=== PATIENT | male | born 2000 | race Caucasian/White ===

== ENCOUNTER 2024-05-02 18:10 | Emergency (ER) | payer BC, OTHER ==
[2024-05-02] MEDS ORDERED: ONDANSETRON 4 MG (ODT) TAB ONE (18:37)
--- NOTE | 2024-05-02 20:20 | RAD REPORT ---
EXAM: CT brain without contrast HISTORY: TRAUMA COMPARISON: None TECHNIQUE: Multiple contiguous axial images were obtained and a CT of the brain without contrast. Sag ittal and coronal reformats were performed. FINDINGS: No evidence of hydrocephalus, intracranial hemorrhage, or extra-axial fluid collection. The brain is normal in morphology. The calvarium is intact. Left frontal scalp swelling and small hematoma. The visualized paranasal sin uses and mastoid air cells are essentially clear. IMPRESSION: No evidence of acute intracranial abnormality. Left frontal scalp swelling and small hematoma. EXAM: CT of the cervical spine without contrast HISTORY: TRAUMA COMPARISON: None TECHNIQUE: Multiple contiguous axial images were obtained in a CT of the cervical spine without contr ast. Sagittal and coronal reformats were performed. FINDINGS: The vertebral bodies demonstrate normal height and alignment. No evidence of acute fracture or subluxation.. No degenerative changes are present. No prevertebral soft tissue swelling is seen. The posterior facets are well aligned. Normal alignment of the skull base with the cervical spine is seen. Incidentally noted 1.6 cm lipoma along the floor of mouth left of midline. The lung apices are unremarkable. IMPRESSION: No evidence of acute osseous abnormality of the cervical spine.
--- NOTE | 2024-05-02 20:26 | ER ---
Nurse's Notes [facility] Name: Elliot Robbins Age: 23 yrs Sex: Male : 2000 Arrival Date: 05/02/2024 Time: 18:10 Bed 14 Private MD: Diagnosis: closed head injury Presentation: 05/02 18:21 Chief complaint: EMS states: toned out for head injury. [place] [facility] [place] the firetruck when an overhead door came down, hitting patient in the back of the head which then made him fall hitting his forehead on the truck. No LOC. c/o dizziness and nausea. PERLLA. EMS gave acetaminophen 975mg PO. Coronavirus screen: Vaccine status: Patient reports being unvaccinated. Ebola Screen: No symptoms or risks identified at this time. Initial Sepsis Screen: Does the patient meet any 2 criteria? HR > 90 bpm. No. Patient's initial sepsis screen is negative. Does the patient have a suspected source of infection? No. Patient's initial sepsis screen is negative. Risk Assessment: Do you want to hurt yourself or someone else? Patient reports no desire to harm self or others. Onset of symptoms was May 02, 2024 at 17:15. Care prior to arrival: Medication(s) given: Tylenol, 975mg PO. 18:21 Method Of Arrival: EMS: [place] [id number] 18:21 Acuity: ROCHELLE 3 me1 Triage Assessment: 18:24 General: Appears uncomfortable, well developed, well nourished, Behavior is calm, me1 cooperative, appropriate for age. Pain: Complains of pain in head Pain does not radiate. Pain currently is 7 out of 10 on a pain scale. Quality of pain is described as aching, Pain began suddenly, Is continuous. EENT: No signs and/or symptoms were reported regarding the EENT system. Neuro: Level of Consciousness is awake, alert, obeys commands, Oriented to person, place, time, situation, Appropriate for age Reports dizziness, headache. Cardiovascular: Patient's skin is warm and dry. Respiratory: Airway is patent Respiratory effort is even, unlabored, Respiratory pattern is regular, symmetrical. GI: No signs and/or symptoms were reported involving the gastrointestinal system. : No signs and/or symptoms were reported regarding the genitourinary system. Derm: Skin is intact, is healthy with good turgor, Skin is pink, warm \T\ dry. Musculoskeletal: Circulation, motion, and sensation intact. Range of motion:. Injury Description: firetruck door fell and hit him in the back of the head and then he fell forward hitting his forehead. Historical: - Allergies: 18:24 No Known Allergies; me1 - PMHx: 18:24 Hypertensive disorder; me1 - PSHx: 18:24 None; me1 - Immunization history:: Adult Immunizations up to date. - Infectious Disease History:: Denies. - Social history:: Smoking status: Patient/guardian denies using tobacco, but has a distant history of tobacco abuse. - Family history:: not pertinent. Screenin:[facility] ED Fall Risk Assessment (Adult) History of falling in the last 3 months, me1 including since admission No falls in past 3 months (0 pts) Confusion or Disorientation No (0 pts) Intoxicated or Sedated No (0 pts) Impaired Gait No (0 pts) Mobility Assist Device Used No (0 pt) Altered Elimination No (0 pt) Score/Fall Risk Level 0 - 2 = Low Risk Maintained a safe environment, Provided non-skid footwear, Hourly rounding (assess needs \T\ fall precautionary measures) done. Abuse screen: Denies threats or abuse. Nutritional screening: No deficits noted. Tuberculosis screening: No symptoms or risk factors identified. Assessment: 18:21 Reassessment: See triage assessment. me1 20:46 Reassessment: Patient and/or family updated on plan of care and expected duration. Pain ha1 level reassessed. Patient is alert, oriented x 3, equal unlabored respirations, skin warm/dry/pink. Patient states feeling better. Patient states symptoms have improved. Vital Signs: 18:21 BP 118 / 63; Pulse 110; Resp 17; Temp 98.2; Pulse Ox 97% ; Weight 90.72 kg; Height 5 me1 ft. 8 in. ; Pain 7/10; 19:00 BP 163 / 96; Pulse 94; Resp 15; Pulse Ox 97% ; me1 20:00 BP 152 / 91; Pulse 93; Resp 14; Pulse Ox 99% ; me1 20:47 BP 153 / 76; Pulse 96; Resp 18 S; Temp 97.8(O); Pulse Ox 98% on R/A; ha1 18:21 Body Mass Index 30.41 (90.72 kg, 172.72 cm) me1 18:21 Pain Scale: Adult me1 ED Course: 18:18 Patient arrived in ED. me1 18:19 Thad Hare MD is Attending Physician. rt 18:21 Patient has correct armband on for positive identification. Bed in low position. Call me1 light in reach. Side rails up X2. Provided Education on: POC. Verbalized understanding.. Client placed on continuous cardiac and pulse oximetry monitoring. NIBP monitoring applied. Pulse ox on. NIBP on. 18:21 No provider procedures requiring assistance completed. Patient did not have IV access me1 during this emergency room visit. 18:24 Triage completed. me1 18:24 Arm band placed on Patient placed in an exam room. me1 18:35 Debora Barbosa, RN is Primary Nurse. me1 18:39 Warm blanket given. me1 18:56 CT Head C Spine In Process Unspecified. EDMS Administered Medications: 18:39 Drug: Ondansetron Oral Disintegrating Tablet Oral Disintegrating Tablet 4 mg PO once me1 Route: PO; 20:48 Follow up: Response: No adverse reaction; Marked relief of symptoms ha1 Medication: 20:48 VIS not applicable for this client. ha1 20:48 VIS not applicable for this client. me1 Outcome: 20:25 Discharge ordered by . rt 20:47 Discharged to home ambulatory, with family, ha1 20:47 Condition: stable 20:47 Discharge instructions given to patient, family, Instructed on discharge instructions, follow up and referral plans. Demonstrated understanding of instructions, follow-up care, 20:48 Patient left the ED. ha1 Signatures: Dispatcher [employer] EDMS Criss Razo RN RN ha1 Thad Hare MD MD rt Debora Barbosa, CECIL RN wy1
--- NOTE | 2024-05-02 20:26 | EDPHYS ---
Physician Documentation [facility] Name: Elliot Robbins Age: 23 yrs Sex: Male : 2000 Arrival Date: 05/02/2024 Time: 18:10 Bed 14 Private MD: ED Physician Thad Hare HPI: 05/02 20:25 This 23 yrs old Male presents to ER via EMS with complaints of Head Injury Without rt LOC-Adult. 20:25 Patient presents to the ED with head trauma. 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 This caused a contusion to the back of his head as well as to the forehead. Denies loss of consciousness but does report headache, nausea, blurred vision. He received Tylenol prior to arrival. Denies other acute complaints at this time, symptoms are moderate severity, no other aggravating alleviating factors.. Historical: - Allergies: 18:24 No Known Allergies; me1 - PMHx: 18:24 Hypertensive disorder; me1 - PSHx: 18:24 None; me1 - Immunization history:: Adult Immunizations up to date. - Infectious Disease History:: Denies. - Social history:: Smoking status: Patient/guardian denies using tobacco, but has a distant history of tobacco abuse. - Family history:: not pertinent. ROS: 20:25 Constitutional: Negative for fever, chills, and weight loss, Cardiovascular: Negative rt for chest pain, palpitations, and edema, Respiratory: Negative for shortness of breath, cough, wheezing, and pleuritic chest pain, MS/Extremity: Negative for injury and deformity, Skin: Negative for injury, rash, and discoloration, 20:25 Abdomen/GI: Positive for nausea, Negative for abdominal pain, 20:25 Neuro: Positive for headache, Negative for loss of consciousness, Exam: 20:25 Constitutional: This is a well developed, well nourished patient who is awake, alert, rt and in no acute distress. Chest/axilla: Normal chest wall appearance and motion. Nontender with no deformity. No lesions are appreciated. Cardiovascular: Regular rate and rhythm with a normal S1 and S2. No gallops, murmurs, or rubs. Normal PMI, no JVD. No pulse deficits. Respiratory: Lungs have equal breath sounds bilaterally, clear to auscultation and percussion. No rales, rhonchi or wheezes noted. No increased work of breathing, no retractions or nasal flaring. Abdomen/GI: Soft, non-tender, with normal bowel sounds. No distension or tympany. No guarding or rebound. No evidence of tenderness throughout. Skin: Warm, dry with normal turgor. Normal color with no rashes, no lesions, and no evidence of cellulitis. MS/ Extremity: Pulses equal, no cyanosis. Neurovascular intact. Full, normal range of motion. Neuro: Awake and alert, GCS 15, oriented to person, place, time, and situation. Cranial nerves II-XII grossly intact. Motor strength 5/5 in all extremities. Sensory grossly intact. Cerebellar exam normal. Normal gait. 20:25 Head/face: Contusion to the forehead, scalp, no lacerations, no other external evidence of trauma. 20:25 Neck: No posterior cervical midline tenderness, Vital Signs: 18:21 BP 118 / 63; Pulse 110; Resp 17; Temp 98.2; Pulse Ox 97% ; Weight 90.72 kg; Height 5 me1 ft. 8 in. ; Pain 7/10; 19:00 BP 163 / 96; Pulse 94; Resp 15; Pulse Ox 97% ; me1 20:00 BP 152 / 91; Pulse 93; Resp 14; Pulse Ox 99% ; me1 20:47 BP 153 / 76; Pulse 96; Resp 18 S; Temp 97.8(O); Pulse Ox 98% on R/A; ha1 18:21 Body Mass Index 30.41 (90.72 kg, 172.72 cm) me1 18:21 Pain Scale: Adult me1 MDM: 18:27 Medical Screening Exam initiated rt 20:25 Differential diagnosis: Concussion, intracranial hemorrhage, contusion. Data reviewed: rt vital signs, nurses notes, radiologic studies. Care significantly affected by the following chronic conditions: Hypertension. Counseling: I had a detailed discussion with the patient and/or guardian regarding the historical points, exam findings, and any diagnostic results supporting the discharge/admit diagnosis, radiology results, the need for outpatient follow up, to return to the emergency department if symptoms worsen or persist or if there are any questions or concerns that arise at home. Response to treatment: the patient's symptoms have markedly improved after treatment. 05/02 18:34 Order name: CT Head C Spine; Complete Time: 20:21 rt Administered Medications: 18:39 Drug: Ondansetron Oral Disintegrating Tablet Oral Disintegrating Tablet 4 mg PO once me1 Route: PO; 20:48 Follow up: Response: No adverse reaction; Marked relief of symptoms ha1 Disposition Summary: 05/02/24 20:25 Discharge Ordered Notes: Location: Home rt Problem: new rt Symptoms: have improved rt Condition: Stable rt Diagnosis - closed head injury rt Followup: rt - With: Private Physician - When: 2 - 3 days - Reason: Discharge Instructions: - Discharge Summary Sheet rt - Concussion, Adult rt Forms: - School release form ha1 - Medication Reconciliation Form rt - Antibiotic Education rt - Prescription Opioid Use rt - Patient Portal Instructions rt - Leadership Thank You Letter rt Signatures: Dispatcher [employer] EDThad Brar MD MD rt Debora Barbosa RN RN nh1 Criss Razo RN 1 Corrections: (The following items were deleted from the chart) 18:34 18:34 Head C Spine MPR Wo [id number].[email or web address].BRZ ordered. EDMS EDMS
[2024-05-03 06:16] VITALS: BP 153/76; TEMP 97.8; O2SAT 98
== END 2024-05-02 20:48 | disposition home or self-care (01) ==
LOC: ER 18:10
DX: S00.83XA Contusion of other part of head, initial encounter (principal); S00.03XA Contusion of scalp, initial encounter; W22.8XXA Striking against or struck by other objects, initial encounter
CPT/HCPCS: 70450; 72125; Q0162